=== PATIENT | male | born 1980 | race African-American/Black ===

== ENCOUNTER 2022-04-30 10:37 | Emergency (ER) | payer OTHER, SELFPAY ==
[2022-04-30 11:16] LABS: Hemoglobin 14.4 g/dL (13.5-17.5); Mean Corpuscular Hemoglobin 27.9 pg (27.0-33.0); Mean Corpuscular Volume 84.3 fl (81.2-95.1); Mean Platelet Volume 10.2 fl (7.4-10.4); Platelet Count 312 10x3/uL (150-450); RBC Distribution Width 14.6 % (11.5-14.5); Red Blood Cell (RBC) Count 5.17 10x6/uL (4.32-5.72); White Blood Cell (WBC) Count 5.4 10x3/uL (3.5-10.5)
[2022-04-30 11:33] LABS: ALT (SGPT) 10 U/L (8-55); AST (SGOT) 17 U/L (5-34); Albumin 4.4 g/dL (3.5-5.0); Alkaline Phosphatase 75 U/L (40-110); Anion Gap 15 mmol/L (10-20); BUN (Urea Nitrogen) 11 mg/dL (8.9-20.6); Bilirubin, Total 0.5 mg/dL (0.2-1.2); Calc. Creatinine Clearance 0 mL/min (70-130); Calcium 9.1 mg/dL (7.8-10.44); Carbon Dioxide 23 mmol/L (22-29); Chloride 108 mmol/L (98-107); Estimated GFR 81; Globulin 2.9 g/dL (2.4-3.5); Glucose 86 mg/dL (70-105); Potassium 4.1 mmol/L (3.5-5.1); Protein, Total 7.3 g/dL (6.0-8.3); Sodium 142 mmol/L (136-145)
[2022-04-30 11:36] LABS: MDiff Complete? YES; SARS-CoV-2 NAA Rapid Test Not Detected (NotDetected)
[2022-04-30 11:41] LABS: Eosinophils 4 % (0-10); Lymphocytes 29 % (21-51); Monocytes 9 % (0-10); Neutrophil 48 % (42-75); Reactive Lymphocytes 10 % (0-10)
[2022-04-30 11:42] LABS: Platelet Morphology Comment Appears Adequate; RBC Morphology Normal
[2022-04-30 11:46] LABS: CKMB 1.3 ng/mL (0-6.6)
[2022-04-30] MEDS ORDERED: Aspirin Chewable 81 MG TAB ONE (11:46)
[2022-04-30] MEDS ORDERED: niCARdipine 25 MG/10 ML VIAL ONE ×3 (11:47→20:37)
[2022-04-30 14:47] LABS: Troponin I 0.062 ng/mL (< 0.028)
== END 2022-04-30 23:49 ==
LOC: CSHERS 10:37
DX: I21.4 Non-ST elevation (NSTEMI) myocardial infarction (principal); I16.1 Hypertensive emergency; I10 Essential (primary) hypertension; E78.5 Hyperlipidemia, unspecified; F17.210 Nicotine dependence, cigarettes, uncomplicated; Z20.822 Contact with and (suspected) exposure to COVID-19
CPT/HCPCS: 71045; 80053; 82553; 84484; 85025; 93005; 96365; 96366; J1650; U0002